=== PATIENT | female | born 1965 | race Native Hawaiian/Other Pacific Islander ===

== ENCOUNTER 2019-03-24 12:17 | Inpatient (IN) | payer OTHER ==
[2019-03-24] MEDS ORDERED: ASPIRIN PO ONE (12:30)
[2019-03-24 13:08] LABS: Basophils # (Auto) 0.1 K/mm3 (0.0-0.1); Basophils % (Auto) 0.9 % (0.0-1.8); Eosinophils # (Auto) 0.1 K/mm3 (0.0-0.4); Eosinophils % (Auto) 1.7 % (0.0-4.3); Hemoglobin 11.9 gm/dl (10.1-14.3); Lymphocytes # (Auto) 1.6 K/mm3 (1.2-5.4); Lymphocytes % (Auto) 22.2 % (13.4-35.0); Mean Corpuscular HGB Conc 33 % (30-34); Mean Corpuscular Volume 98 fl (79-97); Monocytes # (Auto) 0.8 K/mm3 (0.0-0.8); Monocytes % (Auto) 11.6 % (0.0-7.3); Platelet Count 309 K/mm3 (140-440); Red Blood Count 3.69 M/mm3 (3.65-5.03); Red Cell Distribution Width 14.8 % (13.2-15.2)
[2019-03-24 13:27] LABS: BUN/Creatinine Ratio 12; Blood Urea Nitrogen 7 mg/dL (7-17); Calcium 8.6 mg/dL (8.4-10.2); Hemolysis Index 6
--- NOTE | 2019-03-24 13:31 | XRay Report ---
PROCEDURE: XR CHEST ROUTINE 2V TECHNIQUE: PA and lateral chest radiographs were obtained. HISTORY: Chest Pain COMPARISONS: None. FINDINGS: Heart: Prominent cardiac silhouette. Mediastinum/Vessels: Normal. Lungs/Pleural space: No infiltrate, effusion, or pneumothorax. Bony thorax: No acute osseous abnormality. IMPRESSION: Prominent cardiac silhouette, which could be related to cardiomegaly. Cannot exclude per icardial effusion. This document is electronically signed by Kristy Hdez MD., March 24 2019 01:29:20 PM ET
[2019-03-24] MEDS ORDERED: LASIX IV ONE (13:48)
[2019-03-24] MEDS ORDERED: ATROVENT IH ONE (13:48)
[2019-03-24] MEDS ORDERED: PROVENTIL IH ONE (13:48)
--- NOTE | 2019-03-24 14:50 | Emergency Department Report ---
ED Shortness of Breath HPI - General Chief Complaint: Dyspnea/Respdistress Stated Complaint: SOB/CHEST PAIN Time Seen by Provider: 03/24/19 13:41 Source: patient Mode of arrival: Ambulatory Limitations: No Limitations - History of Present Illness Initial Comments: Patient is a 53-year-old female with past medical history of hypertension and occasional bronchitis who is presenting with shortness of breath. Patient states that 2 weeks ago she has some brief shortness of breath for a day or 2 this didn't improve. Patient states for the last week symptoms have been present and progressively worsening. She states she is worse with e xertion. At this point even small movements are causing her to be out of breath. Patient also has some chest tightness as well. Patient walked in with extreme dyspnea when she arrived. Patient is denying any cough fevers chills nausea vomiting diarrhea at this time. - Related Data Allergies Allergy/AdvReac Type Severity Reaction Status Date / Time No Known Allergies Allergy Unverified 03/24/19 12:21 ED Review of Systems ROS: Stated complaint: SOB/CHEST PAIN Other details as noted in HPI Comment: All other systems reviewed and negative ED Past Medical Hx - Past Medical History Previous Medical History?: No - Surgical History Past Surgical History?: No - Social History Smoking Status: Current Every Day Smoker Substance Use Type: Alcohol ED Physical Exam - General Limitations: No Limitations General appearance: alert, in no apparent distress - Head Head exam: Present: atraumatic, normocephalic - Eye Eye exam: Present: normal appearance - ENT ENT exam: Present: mucous membranes moist - Neck Neck exam: Present: normal inspection - Respiratory Respiratory exam: Present: respiratory distress, wheezes. Absent: normal lung sounds bilaterally, rales, rhonchi, stridor - Cardiovascular Cardiovascular Exam: Present: regular rate, normal rhythm, normal heart sounds. Absent: systolic murmur, diastolic murmur, rubs, gallop - GI/Abdominal GI/Abdominal exam: Present: soft, normal bowel sounds. Absent: distended, tenderness, guarding, rebound - Extremities Exam Extremities exam: Present: normal inspection, other (trace edema at the level of the ankles) - Back Exam Back exam: Present: normal inspection - Neurological Exam Neurological exam: Present: alert, oriented X3 - Psychiatric Psychiatric exam: Present: normal affect, normal mood - Skin Skin exam: Present: warm, dry, intact, normal color. Absent: rash ED Course Vital Signs 03/24/19 03/24/19 03/24/19 12:30 12:34 13:28 Temperature 98.1 F Pulse Rate 89 89 Respiratory 24 24 26 H Rate Blood Pressure 125/68 O2 Sat by Pulse 94 94 Oximetry 03/24/19 03/24/19 03/24/19 13:49 13:50 13:51 Temperature Pulse Rate Respiratory Rate Blood Pressure 144/77 144/77 144/77 O2 Sat by Pulse 98 99 98 Oximetry 03/24/19 03/24/19 03/24/19 13:53 13:55 13:57 Temperature Pulse Rate Respiratory Rate Blood Pressure 144/77 144/77 144/77 O2 Sat by Pulse 99 97 97 Oximetry 03/24/19 03/24/19 03/24/19 13:59 14:00 14:01 Temperature Pulse Rate Respiratory Rate Blood Pressure 128/74 128/74 128/74 O2 Sat by Pulse 97 97 98 Oximetry 03/24/19 03/24/19 03/24/19 14:03 14:05 14:07 Temperature Pulse Rate Respiratory Rate Blood Pressure 128/74 128/74 128/74 O2 Sat by Pulse 98 99 99 Oximetry 03/24/19 03/24/19 03/24/19 14:09 14:11 14:13 Temperature Pulse Rate Respiratory Rate Blood Pressure 128/74 128/74 128/74 O2 Sat by Pulse 98 98 100 Oximetry ED Medical Decision Making - Lab Data Result diagrams: 03/24/19 12:33 03/24/19 12:33 Lab Results 03/24/19 03/24/19 03/24/19 Range/Units 12:33 12:33 13:46 WBC 7.2 (4.5-11.0) K/mm3 RBC 3.69 (3.65-5.03) M/mm3 Hgb 11.9 (10.1-14.3) gm/dl Hct 36.0 (30.3-42.9) % MCV 98 H (79-97) fl MCH 32 (28-32) pg MCHC 33 (30-34) % RDW 14.8 (13.2-15.2) % Plt Count 309 (140-440) K/mm3 Lymph % (Auto) 22.2 (13.4-35.0) % Emm[place] % (Auto) 11.6 H (0.0-7.3) % Eos % (Auto) 1.7 (0.0-4.3) % Baso % (Auto) 0.9 (0.0-1.8) % Lymph # 1.6 (1.2-5.4) K/mm3 [place] # 0.8 (0.0-0.8) K/mm3 Eos # 0.1 (0.0-0.4) K/mm3 Baso # 0.1 (0.0-0.1) K/mm3 Seg Neutrophils % 63.6 (40.0-70.0) % Seg Neutrophils # 4.6 (1.8-7.7) K/mm3 Sodium 142 (137-145) mmol/L Potassium 4.2 (3.6-5.0) mmol/L Chloride 106.4 (98-107) mmol/L Carbon Dioxide 26 (22-30) mmol/L Anion Gap 14 mmol/L BUN 7 (7-17) mg/dL Creatinine 0.6 L (0.7-1.2) mg/dL Estimated GFR > 60 ml/min BUN/Creatinine Ratio 12 % Glucose 100 (65-100) mg/dL Calcium 8.6 (8.4-10.2) mg/dL Troponin T < 0.010 (0.00-0.029) ng/mL NT-Pro-B Natriuret Pep 94.60 (0-900) pg/mL - EKG Data -: EKG Interpreted by Vt EKG shows normal: sinus rhythm, axis, intervals, QRS complexes, ST-T waves Rate: normal - EKG Data Interpretation: normal EKG - Radiology Data [facility] [address] [place] [address] XRay Report Signed Patient: RADHA DE LEÓN MR# : [id number] : 1965 Acct:[id number] Age/Sex: 53 / F ADM Date: 03/24/19 Loc: ED Attending Dr: Ordering Physician: FRANK STEPHENSON MD Date of Service: 03/24/19 Procedure(s): XR chest routine 2V Accession Number(s): [id number] cc: ED MD SEEMA Fluoro Time In Minutes: PROCEDURE: XR CHEST ROUTINE 2V TECHNIQUE: PA and lateral chest radiographs were obtained. HISTORY: Chest Pain COMPARISONS: None. FINDINGS: Heart: Prominent cardiac silhouette. Mediastinum/Vessels: Normal. Lungs/Pleural space: No infiltrate, effusion, or pneumothorax. Bony thorax: No acute osseous abnormality. IMPRESSION: Prominent cardiac silhouette, which could be related to cardiomegaly. Cannot exclude pericardial effusion. This document is electronically signed by Kristy Hdez MD., March 24 2019 01:29:20 PM ET Transcribed By: [facility] Dictated By: KRISTY HDEZ M.D. Electronically Authenticated By: KRISTY HDEZ M.D. Signed Date/Time: 03/24/19 1331 DD/ 1300 TD/TT: 03/24/19 1300 - Medical Decision Making Patient presents with mild wheeze and dyspnea on exertion without orthopnea. Patient clinically has congestive heart failure type symptoms. Patient was given neb treatment for the probable cardiogenic wheeze as well as a dose of Lasix. Surprisingly the patient's BMP was within normal limits however this does not 100% exclude cardiomyopathy. Patient to be admitted to the hospitalist service. ABGs been requested by the hospitalist. Patient will undergo further testing and management from inpatient setting. Critical Care Time: Yes (30) Critical care attestation.: If time is entered above; I have spent that time in minutes in the direct care of this critically ill patient, excluding procedure time. ED Disposition Clinical Impression: Acute respiratory distress, Chest pain Cardiomyopathy Qualifiers: Cardiomyopathy type: unspecified Qualified Code(s): I42.9 - Cardiomyopathy, unspecified Disposition: 09 OP ADMIT IP TO THIS HOSP Is pt being admited?: Yes Does the pt Need Aspirin: No Condition: Stable Instructions: Chest Pain (ED) Time of Disposition: 14:50
[2019-03-24] MEDS ORDERED: DILAUDID IV PRN (22:35)
[2019-03-24] MEDS ORDERED: TYLENOL PO PRN (22:35)
[2019-03-24] MEDS ORDERED: ZOFRAN IV PRN (22:35)
[2019-03-24] MEDS ORDERED: SODIUM CHLORIDE FLUSH SYRINGE 10 ML IV PRN (22:35)
[2019-03-24] MEDS ORDERED: PERCOCET 5/325 PO PRN (22:35)
[2019-03-24] MEDS ORDERED: DUONEB *Not for PRN Use IH (22:44)
--- NOTE | 2019-03-24 22:52 | History and Physical Report ---
History of Present Illness Date of examination: 03/24/19 Date of admission: 03/24/19 14:51 Chief complaint: Shortness of breath for 1 week and cough for 2 weeks History of present illness: 53-year-old -[place] female with history of hypertension and occasional bronchitis secondary to smoking comes in for increasing shortness of breath of 2 weeks' duration. Patient also has some cough and wheezing. Cough productive of mucoid sputum. Shortness of breath on minimal exertion. Patient has class IV NYHA symptoms. Some orthopnea present. No diaphoresis some chest tightness occasionally. No radiation. Past Medical History HTN Surgical History Past Surgical History?: No Social History Smoking Status: Current Every Day Smoker Substance Use Type: Alcohol Family history Htn Review of Systems ROS: Stated complaint: SOB/CHEST PAIN Other details as noted in HPI No recent weight gain Comment: All other systems reviewed and negative Medications and Allergies Allergies Allergy/AdvReac Type Severity Reaction Status Date / Time No Known Allergies Allergy Unverified 03/24/19 12:21 Home Medications Medication Instructions Recorded Confirmed Last Taken Type Hydrochlorothiazide 25 mg PO BID 03/24/19 03/24/19 Unknown History Active Meds: Active Medications Acetaminophen (Tylenol) 650 mg PO Q4H PRN PRN Reason: Pain MILD(1-3)/Fever >100.5/ZAPATA Albuterol/Ipratropium (Duoneb *Not For Prn Use*) 1 ampul IH Q3H PRN PRN Reason: Wheezing Famotidine (Pepcid) 20 mg PO BID ELIU Furosemide (Lasix) 40 mg IV 0600 ELIU Hydromorphone HCl (Dilaudid) 0.5 mg IV Q3H PRN PRN Reason: Pain , Severe (7-10) Levofloxacin/Dextrose (Levaquin 750mg/150ml) 750 mg in 150 mls @ 100 mls/hr IV Q24HR ELIU; Protocol Methylprednisolone Sodium Succinate (Solu-Medrol) 40 mg IV Q8HR ELIU Ondansetron HCl (Zofran) 4 mg IV Q8H PRN PRN Reason: Nausea And Vomiting Oxycodone/Acetaminophen (Percocet 5/325) 1 tab PO Q6H PRN PRN Reason: Pain, Moderate (4-6) Potassium Chloride (K-Dur) 20 meq PO QDAY ELIU Sodium Chloride (Sodium Chloride Flush Syringe 10 Ml) 10 ml IV BID [facility] Sodium Chloride (Sodium Chloride Flush Syringe 10 Ml) 10 ml IV PRN PRN PRN Reason: LINE FLUSH Exam - Constitutional Vitals: Temp Pulse Resp BP Pulse Ox 98.3 F 87 18 120/66 96 03/24/19 20:48 03/24/19 20:48 03/24/19 20:48 03/24/19 20:48 03/24/19 20:48 General appearance: Present: mild distress, well-nourished - EENT Eyes: Present: PERRL ENT: hearing intact, clear oral mucosa - Neck Neck: Present: supple, normal ROM - Respiratory Respiratory effort: normal Respiratory: bilateral: CTA - Cardiovascular Heart rate: 96 Rhythm: regular Heart Sounds: Present: S1 & S2. Absent: rub, click - Extremities Extremities: no ischemia, pulses intact, pulses symmetrical, No edema Peripheral Pulses: within normal limits - Abdominal General gastrointestinal: Present: soft, non-tender, non-distended, normal bowel sounds Female genitourinary: Present: normal - Integumentary Integumentary: Present: clear, warm, dry - Musculoskeletal Musculoskeletal: gait normal, strength equal bilaterally - Psychiatric Psychiatric: appropriate mood/affect, intact judgment & insight - Neurologic Neurologic: CNII-XII intact, moves all extremities - Allied Health Allied health notes reviewed: nursing, case management Results - Labs CBC & Chem 7: 03/24/19 12:33 03/24/19 12:33 Labs: Laboratory Last Values WBC 7.2 K/mm3 (4.5-11.0) 03/24/19 12:33 RBC 3.69 M/mm3 (3.65-5.03) 03/24/19 12:33 Hgb 11.9 gm/dl (10.1-14.3) 03/24/19 12:33 Hct 36.0 % (30.3-42.9) 03/24/19 12:33 MCV 98 fl (79-97) H 03/24/19 12:33 MCH 32 pg (28-32) 03/24/19 12:33 MCHC 33 % (30-34) 03/24/19 12:33 RDW 14.8 % (13.2-15.2) 03/24/19 12:33 Plt Count 309 K/mm3 (140-440) 03/24/19 12:33 Lymph % (Auto) 22.2 % (13.4-35.0) 03/24/19 12:33 Wirt % (Auto) 11.6 % (0.0-7.3) H 03/24/19 12:33 Eos % (Auto) 1.7 % (0.0-4.3) 03/24/19 12:33 Baso % (Auto) 0.9 % (0.0-1.8) 03/24/19 12:33 Lymph # 1.6 K/mm3 (1.2-5.4) 03/24/19 12:33 Wirt # 0.8 K/mm3 (0.0-0.8) 03/24/19 12:33 Eos # 0.1 K/mm3 (0.0-0.4) 03/24/19 12:33 Baso # 0.1 K/mm3 (0.0-0.1) 03/24/19 12:33 Seg Neutrophils % 63.6 % (40.0-70.0) 03/24/19 12:33 Seg Neutrophils # 4.6 K/mm3 (1.8-7.7) 03/24/19 12:33 Sodium 142 mmol/L (137-145) 03/24/19 12:33 Potassium 4.2 mmol/L (3.6-5.0) 03/24/19 12:33 Chloride 106.4 mmol/L (98-107) 03/24/19 12:33 Carbon Dioxide 26 mmol/L (22-30) 03/24/19 12:33 Anion Gap 14 mmol/L 03/24/19 12:33 BUN 7 mg/dL (7-17) 03/24/19 12:33 Creatinine 0.6 mg/dL (0.7-1.2) L 03/24/19 12:33 Estimated GFR > 60 ml/min 03/24/19 12:33 BUN/Creatinine Ratio 12 % 03/24/19 12:33 Glucose 100 mg/dL (65-100) 03/24/19 12:33 Calcium 8.6 mg/dL (8.4-10.2) 03/24/19 12:33 Troponin T < 0.010 ng/mL (0.00-0.029) 03/24/19 20:26 NT-Pro-B Natriuret Pep 94.60 pg/mL (0-900) 03/24/19 13:46 Short CBC 03/24/19 Range/Units 12:33 WBC 7.2 (4.5-11.0) K/mm3 Hgb 11.9 (10.1-14.3) gm/dl Hct 36.0 (30.3-42.9) % Plt Count 309 (140-440) K/mm3 BMP 03/24/19 12:33 Sodium 142 Potassium 4.2 Chloride 106.4 Carbon Dioxide 26 BUN 7 Creatinine 0.6 L Glucose 100 Calcium 8.6 Cardiac Enzymes 03/24/19 03/24/19 03/24/19 Range/Units 12:33 15:20 20:26 Troponin T < 0.010 < 0.010 < 0.010 (0.00-0.029) ng/mL - Imaging and Cardiology EKG: report reviewed (normal sinus rhythm heart rate of 87/m) Chest x-ray: report reviewed (massive cardiomegaly) Imaging and Cardiology: Chest x-ray Heart: Prominent cardiac silhouette. Mediastinum/Vessels: Normal. Lungs/Pleural space: No infiltrate, effusion, or pneumothorax. Bony thorax: No acute osseous abnormality. IMPRESSION: Prominent cardiac silhouette, which could be related to cardiomegaly. Cannot exclude pericardial effusion. Assessment and Plan Advance Directives: Yes (full code) VTE prophylaxis?: Chemical Plan of care discussed with patient/family: Yes - Patient Problems (1) Acute respiratory distress Current Visit: Yes Status: Acute Plan to address problem: Differential diagnoses of CHF/COPD and pericardial effusion IV Lasix and DuoNeb's for now Echo to rule out Pericardial effusion (2) COPD exacerbation Current Visit: Yes Status: Acute Plan to address problem: Patient initiated on low-dose Solu-Medrol nebulizer treatments and IV antibioti cs (3) Acute exacerbation of CHF (congestive heart failure) Current Visit: Yes Status: Acute Qualifiers: Heart failure type: combined systolic and diastolic Qualified Code(s): I50.43 - Acute on chronic combined systolic (congestive) and diastolic (congestive) heart failure Plan to address problem: BNP is low Possible pericardial effusion IV Lasix 40 mg every 24hrs (4) Cardiomyopathy Current Visit: Yes Status: Chronic Qualifiers: Cardiomyopathy type: unspecified Qualified Code(s): I42.9 - Cardiomyopathy, unspecified Plan to address problem: Possibly secondary to hypertension Echocardiogram for ejection fraction IV Lasix 40 mg every 24 Cardiology consult requested (5) Hypertension Current Visit: Yes Status: Chronic Qualifiers: Hypertension type: essential hypertension Qualified Code(s): I10 - Essential (primary) hypertension Plan to address problem: Continue antihypertensives (6) DVT prophylaxis Current Visit: Yes Status: Acute Plan to address problem: On Lovenox and GI prophylaxis
[2019-03-24] MEDS ORDERED: PROVENTIL IH PRN (22:59)
[2019-03-24] MEDS: SOLU-Medrol IV SCH (23:10)
[2019-03-25] MEDS ORDERED: LASIX IV SCH (06:00)
[2019-03-25] MEDS: SOLU-Medrol IV SCH ×2 (06:34→14:20)
[2019-03-25] MEDS ORDERED: K-DUR PO SCH (10:00)
[2019-03-25] MEDS ORDERED: LEVAQUIN 750MG/150ML 750 MG/150 ML BAG IV SCH (10:00)
[2019-03-25] MEDS: PEPCID PO SCH ×2 (10:04→21:55)
[2019-03-25] MEDS: SODIUM CHLORIDE FLUSH SYRINGE 10 ML IV SCH ×2 (10:10→21:55)
--- NOTE | 2019-03-25 11:39 | Consultation ---
History of Present Illness Consult date: 03/25/19 Requesting physician: LILLIE BENNETT Consult reason: shortness of breath History of present illness: Patient is a 53 y/o female with a history of hypertension and occasional bronchitis secondary to smoking who presented for increasing shortness of breath x1 week. She reports not being able to walk more than 25 steps before becoming SOB. She also states intermittent and brief episodes of sharp right-sided chest pain and one episode of palpitations that was also brief. She denies a history of heart disease, COPD, diabetes and dyslipidemia. She does report a family history significant for CAD in her grandmother, "heart problems" in her mother and CHF in her brother. CXR shows possible pericardial effusion and enlarged cardiac silhouette. BNP 94.6. EKG shows sinus rhythm with PACs. She received Lasix and breathing treatments in the ED and has reported improvement in symptoms. We are consulted to evaluate for heart failure and pericardial effusion. Past History Past Medical History: hypertension, other (bronchitis) Past Surgical History: No surgical history Social history: smoking Family history: CAD Medications and Allergies Allergies Allergy/AdvReac Type Severity Reaction Status Date / Time No Known Allergies Allergy Unverified 03/24/19 12:21 Home Medications Medication Instructions Recorded Confirmed Last Taken Type Hydrochlorothiazide 25 mg PO BID 03/24/19 03/24/19 Unknown History Active Meds: Active Medications Acetaminophen (Tylenol) 650 mg PO Q4H PRN PRN Reason: Pain MILD(1-3)/Fever >100.5/ZAPATA Albuterol (Proventil) 2.5 mg IH Q3HRT PRN PRN Reason: Wheezing Enoxaparin Sodium (Lovenox) 40 mg SUB-Q QDAY@2200 ELIU Famotidine (Pepcid) 20 mg PO BID [facility] Last Admin: 03/25/19 10:04 Dose: 20 mg Documented by: Furosemide (Lasix) 40 mg IV 0600 ELIU Last Admin: 03/25/19 06:35 Dose: 40 mg Documented by: Hydromorphone HCl (Dilaudid) 0.5 mg IV Q3H PRN PRN Reason: Pain , Severe (7-10) Levofloxacin/Dextrose (Levaquin 750mg/150ml) 750 mg in 150 mls @ 100 mls/hr IV Q24HR ELIU; Protocol Stop: 03/29/19 11:29 Last Admin: 03/25/19 10:05 Dose: 100 mls/hr Documented by: Methylprednisolone Sodium Succinate (Solu-Medrol) 40 mg IV Q8HR [facility] Last Admin: 03/25/19 06:34 Dose: 40 mg Documented by: Ondansetron HCl (Zofran) 4 mg IV Q8H PRN PRN Reason: Nausea And Vomiting Oxycodone/Acetaminophen (Percocet 5/325) 1 tab PO Q6H PRN PRN Reason: Pain, Moderate (4-6) Potassium Chloride (K-Dur) 20 meq PO QDAY [facility] Last Admin: 03/25/19 10:04 Dose: 20 meq Documented by: Sodium Chloride (Sodium Chloride Flush Syringe 10 Ml) 10 ml IV BID [facility] Last Admin: 03/25/19 10:10 Dose: 10 ml Documented by: Sodium Chloride (Sodium Chloride Flush Syringe 10 Ml) 10 ml IV PRN PRN PRN Reason: LINE FLUSH Review of Systems Cardiovascular: shortness of breath, dyspnea on exertion, leg edema (mild, pitting) Respiratory: cough, shortness of breath Gastrointestinal: other (obesity) Physical Examination Last Vital Signs Temp 98.1 F 03/25/19 08:38 Pulse 75 03/25/19 08:37 Resp 18 03/25/19 08:37 BP 130/74 03/25/19 08:37 Pulse Ox 93 03/25/19 08:37 Narrative exam: Lying in bed in moderate distress. Reports improvement with Lasix and current medication regimen. General appearance: mild distress Cardiac: Positive: Reg Rate and Rhythm Lungs: Positive: Decreased Breath Sounds Abdomen: Positive: Other (obese) Extremities: Present: +1 Edema Results 03/24/19 12:33 03/24/19 12:33 CBC 03/24/19 Range/Units 12:33 WBC 7.2 (4.5-11.0) K/mm3 RBC 3.69 (3.65-5.03) M/mm3 Hgb 11.9 (10.1-14.3) gm/dl Hct 36.0 (30.3-42.9) % Plt Count 309 (140-440) K/mm3 Lymph # 1.6 (1.2-5.4) K/mm3 [place] # 0.8 (0.0-0.8) K/mm3 Eos # 0.1 (0.0-0.4) K/mm3 Baso # 0.1 (0.0-0.1) K/mm3 Comprehensive Metabolic Panel 03/24/19 Range/Units 12:33 Sodium 142 (137-145) mmol/L Potassium 4.2 (3.6-5.0) mmol/L Chloride 106.4 (98-107) mmol/L Carbon Dioxide 26 (22-30) mmol/L BUN 7 (7-17) mg/dL Creatinine 0.6 L (0.7-1.2) mg/dL Glucose 100 (65-100) mg/dL Calcium 8.6 (8.4-10.2) mg/dL - Imaging and Cardiology EKG: report reviewed - EKG Interpretation EKG: sinus rhythm EKG interpretations - EKG Sinus rhythms and dysrhythmias: sinus rhythm Supraventricular dysrhythmia: atrial premature complexe Assessment and Plan Continue current cardiac regimen. Patient reports symptoms are improving and she does not appear significantly volume overloaded on exam. Echocardiogram pending. Will also obtain D-dimer and Lexiscan stress test. Patient was seen in conjunction with Dr. Jacobson, who agrees with assessment and plan. - Patient Problems (1) Dyspnea on minimal exertion Current Visit: Yes Status: Acute (2) Acute respiratory distress Current Visit: Yes Status: Acute (3) Chest pain Current Visit: Yes Status: Acute (4) Hypertension Current Visit: Yes Status: Chronic Qualifiers: Hypertension type: essential hypertension Qualified Code(s): I10 - Essential (primary) hypertension
--- NOTE | 2019-03-25 16:09 | Event Note ---
Date: 03/25/19 Patient found to have large pericardial effusion with impending tamponade on echocardiogram. Will transfer patient to [place] for CT surgery consultation. D/W hospitalist and [place] Transfer Service contacted. Robin Mendez/Dr. Porter
--- NOTE | 2019-03-25 16:18 | Event Note ---
Date: 03/25/19 Called by cardiology that patient has large pericardial effusion with impending tamponade. Cardiology making arrangements to transfer to [place].
--- NOTE | 2019-03-25 16:23 | Discharge Summary ---
Providers - Providers Date of Admission: 03/24/19 14:51 Date of discharge: 03/25/19 Attending physician: DRAKE CASTANEDA 03/24/19 22:35 Consult to Physician [CONS] Routine Comment: Consulting Provider: MARCELA LINCOLN Physician Instructions: Reason For Exam: CHF exacerbation [facility] DER[facility] Hospitalization Condition: Serious Hospital course: Patient 53-year-old -[place]er female with history of hypertension and occasional bronchitis secondary to smoking comes in for increasing shortness of breath of 2 weeks' duration. Patient also has some cough and wheezing. Cough productive of mucoid sputum. Shortness of breath on minimal exertion. She was seen and evaluated in ED, diagnosed with acute respiratory failure possibly due to CHF or COPD. Chest x ray showed enlarge cardiac silhoutte. She denied any previous history of CHF or COPD. Echocardiogram done today 03/25/19 reveal large pericardial effusion with pending tamponade. [employer] Rental Clerk called [place] and arrangements being made to transfer to [place]. Also of note d-dimer elevated, discussed with cardiology. This may be due to pericardial effusion. Disposition[id number] IP - Discharge Diagnoses (1) Acute respiratory failure Status: Acute (2) Pericardial effusion Status: Acute (3) Chest pain Status: Acute Core Measure Documentation - Palliative Care Palliative Care/ Comfort Measures: Not Applicable - Core Measures Any of the following diagnoses?: none Exam - Constitutional Vitals: Temp Pulse Resp BP Pulse Ox 98.1 F 81 18 126/78 99 03/25/19 12:00 03/25/19 12:00 03/25/19 12:00 03/25/19 12:00 03/25/19 12:00 Plan Additional Instructions: 1.Transfer patient to [place] Follow up with: DIANA LACKEY MD [Primary Care Provider] - 7 Days
[2019-03-25] MEDS ORDERED: LOVENOX SUB-Q SCH (22:00)
[2019-03-26 01:06] VITALS: BP 147/86
== END 2019-03-25 23:55 | disposition short-term general hospital (02) | DRG 189 ==
LOC: ED 12:17 → 4A 14:51
PROVIDERS: ADMIT Internal Medicine; ATTEND Internal Medicine
DX: J96.00 Acute respiratory failure, unspecified whether with hypoxia or hypercapnia (principal); I31.4 Cardiac tamponade; I42.9 Cardiomyopathy, unspecified; J44.1 Chronic obstructive pulmonary disease with (acute) exacerbation; I31.3 Pericardial effusion (noninflammatory); F17.210 Nicotine dependence, cigarettes, uncomplicated; I50.9 Heart failure, unspecified; I11.0 Hypertensive heart disease with heart failure; Z82.49 Family history of ischemic heart disease and other diseases of the circulatory system; Z79.899 Other long term (current) drug therapy
CPT/HCPCS: 36415; 71046; 78452; 80048; 83036; 83880; 84484; 85025; 85379; 93005; 93010; 93306; 94640; G0378; A9502; J1650; J1940; J1956; J2920